=== PATIENT | female | born 1940 | race Caucasian/White ===

== ENCOUNTER 2019-07-22 18:52 | Inpatient (IN) | payer MEDICARE, MEDICAID ==
[~2019-07-22] VITALS: Ht 167.6 cm; Wt 72.8 kg
[~2019-07-22 18:52] MED LIST: ATIVAN0.5 MG PO; BUMEX 1 MG TAB1 MG PO; BUSPAR5 MG PO; CYMBALTA60 MG PO; KENALOG 0.025%15 G2 TOPICAL; KLONOPIN0.5 MG PO; LANTUS INSULIN10 ML SC; LIPITOR10 MG PO; LISINOPRIL5 MG PO; MELATONIN 3 MG1 TAB PO; ORAP1 MG PO; POTASSIUM CHLO10 ME1 PO; SENNA PLUS TA1 UDTAB PO; ZYLOPRIM100 MG PO
--- NOTE | 2019-07-22 19:21 | NUR ---
PT ARRIVED TO UNIT VIA EMS AT 1850. ATTEMPTED TO CONTACT BROTHER ELBA FOR VERBAL CONSENT. LEFT VOICEMAIL.
--- NOTE | 2019-07-22 19:31 | NUR ---
SPOKE WITH ELBA HARRELL, PTS BROTHER ON PHONE. CONFIRMED CODE STATUS DNR. CODE WORD AHMET. VERBALIZED CONSENT TO TREAT. PT CAME FROM THE [facility]. PT IS CALM AND RESTING IN DAYROOM.
[2019-07-22] MEDS ORDERED: CELEXA10 MG PO (19:50)
[2019-07-22] MEDS ORDERED: BUSPAR10 MG PO (19:52)
[2019-07-22] MEDS ORDERED: MELATONIN 3 MG1 TAB PO (19:53)
[2019-07-22] MEDS ORDERED: COLACE100 MG PO (19:53)
[2019-07-22] MEDS ORDERED: ZYLOPRIM100 MG PO (19:54)
[2019-07-22] MEDS ORDERED: OS-CAL500 MG PO (19:55)
[2019-07-22] MEDS ORDERED: BUMETANIDE0.5 MG PO (19:55)
[2019-07-22] MEDS ORDERED: HEALTHYLAX17 GM PO (19:56)
[2019-07-22] MEDS ORDERED: LIPITOR10 MG PO (19:57)
[2019-07-22] MEDS ORDERED: LISINOPRIL5 MG PO (19:58)
[2019-07-22 20:00] VITALS: BP 100/65
[2019-07-22] MEDS ORDERED: SIMETHICON40 MG/0.6 PO (20:01)
[2019-07-22] MEDS ORDERED: NOVOLOG100 UNIT/1 SC (20:03)
[2019-07-22 22:36] VITALS: BP 100/62
[2019-07-23 07:00] VITALS: BP 108/57
[2019-07-23 07:44] LABS: CHOL - HDL RATIO 2.6 ratio (2.3-4.1); LDL-HDL RATIO 1.1 ratio (1.5-3.5)
[2019-07-23 20:00] VITALS: BP 105/66
--- NOTE | 2019-07-23 23:36 | NUR ---
B.) PT IS ALERT AND ORIENTED TO SELF ONLY. SHE IS PLEASANT WITH STAFF AND PEERS. SHE USES A WHEELCHAIR TO AMBULATE. SHE IS INCONTINENT AND UNABLE TO MAKE NEEDS KNOWN. SHE IS QUIET AND KEEPS TO HERSELF. I.) REDIRECT AND REORIENT OFTEN. PROVIDED PM MEDICATONS. R.) PT REMAINS CONFUSED DESPITE ATTEMPTS TO REDIRECT AND REORIENT. COMPLIANT WITH ALL MEDICATIONS. P.) CONTINUE PLAN OF CARE
--- NOTE | 2019-07-24 14:44 | NUR ---
PT IS ALERT TO PERSON ONLY. CALM AND COOPERATIVE WITH ASSESSMENT. PT DID REFUSED V/S X 3 THIS AM. PT TAKES MEDS CRUSHED IN APPLESAUCE. MED COMPLAINT. REDIRECT AND REORIENT NEEDED. FALL PRECAUTIONS IN PLACE. WILL CPOC.
--- NOTE | 2019-07-24 15:51 | HP ---
PATIENT: KENYA DELGADO MEDICAL RECORD: [id number] ACCOUNT: [id number] LOCATION:ABDIFATA[facility] Turner9 : 38 ADMISSION DATE: 07/22/19 PCP: ESTELLE FARRELL MD HISTORY AND PHYSICAL EXAMINATION IDENTIFYING DATA: The patient is 79 years old and she is known to me from previous clinical contact. CHIEF COMPLAINT: Aggression. HISTORY OF PRESENT ILLNESS: The patient lives in a local alf. She has a known chronically mentally ill person. She has been quite aggressive there. She also has a history of dementia. She has no recollection about the events that precipitated this admission. PAST MEDICAL HISTORY: Significant for hypertension. PAST PSYCHIATRIC HISTORY: Significant for a longstanding chronic mental illness for which the patient has received extensive inpatient and outpatient treatment throughout her adult life. FAMILY HISTORY: Significant for coronary artery disease, hypertension, and cancer. ALLERGIES: DEPAKOTE, BENADRYL, AND PENICILLIN. CURRENT MEDICATIONS: Include allopurinol, MiraLax, BuSpar, melatonin, lisinopril, Celexa, insulin, and Lipitor. SOCIAL HISTORY: The patient lives in a local alf. She is and her spouse is . She never functioned well socially and occupationally and has been chronically ill, much all of her adult life. MENTAL STATUS EXAMINATION: The patient is awake, alert, and oriented to person only. Her mood is flat. Her affect is constricted. Thought processes are circumstantial. Memory, concentration, and abstraction abilities are severely impaired. She denies any active intent to harm herself or others as well as any overt psychotic symptoms. ASSETS: Supportive family members. LIABILITIES: Limited insight. DIAGNOSTIC IMPRESSION: AXIS I: Major neurocognitive disorder of the Alzheimer's type with behavioral disturbances. Schizoaffective disorder, bipolar type. AXIS II: Deferred. AXIS III: Diabetes, hypertension, and hyperlipidemia. AXIS IV: Moderate stressors. AXIS V: Global assessment of functioning is 30. PLAN: At this time, the patient is admitted to the hospital secondary to aggressive behavior at the alf. She will be treated with both mood stabilizing and memory enhancing medications. Her long-term prognosis is guarded. HISTORY AND PHYSICAL [id number] KENYA DELGADO TRANSINT:[id number] Voice Confirmation ID: [id number] DOCUMENT ID: [id number] MELONY PHAM MD at 1551 CC: [id number] DICTATION DATE: 1938 PRODUCTION ASSEMBLY OPERATOR: 07/23/19 1224 ADM IN [place] [id number] [place] [id number]
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
[2019-07-25 10:37] VITALS: BP 116/65
--- NOTE | 2019-07-25 12:36 | PN ---
PATIENT:KENYA DELGADO MEDICAL RECORD: [id number] LOCATION:[facility] Turner ADMISSION DATE: 07/22/19 PROGRESS NOTE DATE OF SERVICE: 07/24/2019 SUBJECTIVE: The patient's case was discussed with staff. She has no new complaint. OBJECTIVE: The patient has a depressed mood, but no thoughts of harming herself or others. ASSESSMENT: Dementia. PLAN: At this time, the patient is going to be started on Wellbutrin to assist with her depressive symptoms. Her long-term prognosis is guarded. TRANSINT:[id number] Voice Confirmation ID: [id number] DOCUMENT ID: [id number] MELONY PHAM MD at 1236 CC: [id number] DICTATION DATE: 07/24/191706 SOCIAL SERVICE ASSISTANT: 07/24/191914 ADM IN [facility] [address] [place] [address]
--- NOTE | 2019-07-25 15:16 | NUR ---
PT IS SITTING IN W/C IN DAYROOM WITH PEERS. CALM AND COOPERATIVE WITH ASSESSMENT. MED COMPLIANT. NO BEHAVIORS NOTED. REDIRECT AND REORIENT NEEDED. FALL PRECAUTIONS IN PLACE. WILL CPOC.
[2019-07-25 15:28] VITALS: Ht 167.6 cm; Wt 72.8 kg
[2019-07-25 22:45] VITALS: BP 118/49
--- NOTE | 2019-07-26 02:17 | NUR ---
B) Patient is alert and oriented to person, calm and cooperative I) Administered scheduled medications as ordered, monitored for safety R) Mediation compliant, P0 Continue plan of care.
[2019-07-26 09:09] VITALS: BP 112/67
--- NOTE | 2019-07-26 12:28 | NUR ---
PT IS AWAKE, ALERT, AND COOPERATIVE. CALM AND COOPERATIVE WITH ASSESSMENT. MED COMPLIANT. REDIRECT AND REORIENT NEEDED. FALL PRECAUTIONS IN PLACE. NO BEHAVIORS NOTED AT THIS TIME. WILL CPOC.
--- NOTE | 2019-07-26 15:30 | PN ---
PATIENT:KENYA DELGADO MEDICAL RECORD: [id number] LOCATION:ABDIFATA[facility] Turner ADMISSION DATE: 07/22/19 PROGRESS NOTE DATE OF SERVICE: 07/25/2019 SUBJECTIVE: The patient's case was discussed with staff. She has no new complaint. OBJECTIVE: The patient is in good behavioral control with limited insight about her condition. She tolerates her medicines well. ASSESSMENT: Dementia. PLAN: Brief supportive and educational interventions were made. Long-term prognosis is guarded. TRANSINT:[id number] Voice Confirmation ID: [id number] DOCUMENT ID: [id number] MELONY PHAM MD at 1530 CC: [id number] DICTATION DATE: 07/25/19 1313 TECHNICAL CUSTOMER SUPPORT SPECIALIST: 07/25/19 1325 ADM IN [address] [address]
[2019-07-26 19:42] VITALS: BP 120/66
--- NOTE | 2019-07-26 23:14 | NUR ---
B.) PT IS ALERT AND ORIENTED TO SELF ONLY. SHE IS RECIEVED IN DAYROOM IN A WHEELCHAIR. SHE IS PLEASANT WITH STAFF AND PEERS. I.) PROVIDED PM MEDICATIONS. R.) COMPLIANT WITH ALL MEDICATIONS. P.) CONTINUE PLAN OF CARE
[2019-07-27 08:32] VITALS: BP 107/70
--- NOTE | 2019-07-27 10:00 | NUR ---
RECEIVED PATIENT IN DINING ROOM FOR B'FAST. ALERT, CALM, CONFUSED, COOPERATIVE, PLEASANT. GARBLED SPEECH. MEDS ADMIN PER ORDERS WITH COMPLETE M MED COMPLIANCE NOTED. CONT POC DIRECTED.
--- NOTE | 2019-07-27 12:38 | NUR ---
NUTRITION F/U PT TOLERATING REG DIET. 65% INTAKE RECENT MEALS. STABLE WT AT THIS TIME. WILL CONTINUE TO MONITOR. RD FOLLOWING
--- NOTE | 2019-07-27 13:34 | PN ---
PATIENT:KENYA DELGADO MEDICAL RECORD: [id number] LOCATION:ABDIFATA[facility] Turner ADMISSION DATE: 07/22/19 PROGRESS NOTE DATE OF SERVICE: 07/26/2019 SUBJECTIVE: The patient's case was discussed with staff. She has no new complaint. OBJECTIVE: The patient appears to be significantly and seriously distress, but when asked about this denies it. She has pretty limited insight about her situation. I think the Wellbutrin may be somewhat activating to her and I am going to discontinue it and start her on Zoloft. ASSESSMENT: Dementia. PLAN: Current medicines have been reviewed. I am going to make the changes I just described. TRANSINT:[id number] Voice Confirmation ID: [id number] DOCUMENT ID: [id number] MELONY PHAM MD at 1334 CC: [id number] DICTATION DATE: 07/26/19 170 BUSINESS TRAVEL CONSULTANT: 07/27/19 0026 ADM IN [facility] [address] [place] [address]
[2019-07-27 20:20] VITALS: BP 111/50
--- NOTE | 2019-07-28 03:41 | NUR ---
B.) PT IS ALERT AND ORIENTED TO SELF ONLY. SHE IS PLEASANT WITH STAFF AND USES A WHEELCHAIR TO AMBULATE. SHE IS ABLE TO MAKE HER NEEDS KNOWN MOST OF THE TIME. I.) PROVIDED PM MEDICATIONS. R.) COMPLIANT WITH ALL MEDICATIONS. P.) CONTINUE PLAN OF CARE
[2019-07-28 09:36] VITALS: BP 103/58
[2019-07-28 12:45] LABS: BASOPHILS 0.2 % (0-2); EOSINOPHILS 2.4 % (0-7); HEMATOCRIT 37.1 % (36.0-48.0); HEMOGLOBIN 12.3 g/dL (12-16); IMMATURE GRANULOCYTES 0.2 % (0-5); LYMPHOCYTES 34.3 % (15-50); MCH 29.6 pg (26.0-34.0); MCHC 33.2 g/dL (31.0-37.0); MCV 89.4 fL (80.0-100.0); MEAN PLATELET VOLUME 10.1 fL (7.4-10.4); NEUTROPHILS 58.9 % (40-80); PLATELET COUNT 213 10x3/uL (130-400); RBC 4.15 10x6/uL (4.00-5.40); RDW 13.6 % (11.5-14.5); WBC 8.5 10x3/uL (4.8-10.8)
[2019-07-28 13:12] LABS: ALBUMIN 3.7 g/dL (3.4-5.0); ANION GAP 10.9 mmol/L (8-16); BILIRUBIN - TOTAL 0.32 mg/dL (0.2-1.3); CALCIUM 9.2 mg/dL (8.5-10.1); CARBON DIOXIDE 27.8 mmol/L (21.0-32.0); CREATININE - SERUM 1.2 mg/dL (0.6-1.3); POTASSIUM - SERUM 3.7 mmol/L (3.5-5.1); PROTEIN - SERUM 7.1 g/dL (6.4-8.2); THYROID STIMULATING HORMONE 1.27 uIU/mL (0.36-3.74)
--- NOTE | 2019-07-28 15:48 | NUR ---
B) The patient is awake and alert, she has not shown any aggression today. She has been calm and pleasant. I) Provide prescribed meds. R) The patient is compliant with meds. P) Continue POC.
--- NOTE | 2019-07-28 21:05 | NUR ---
PATIENT IS CONFUSED, NO AGRESSION NOTED, NO ANXIETY NOTED, SMILES APPROPRIATLEY, COMPLIANT WITH MEDS. WILL FOLLOW POC
[2019-07-28 21:26] VITALS: BP 112/66
--- NOTE | 2019-07-29 08:07 | NUR ---
B) The patient is awake and alert, she is pleasant, she has not shown any aggression this am, she smiles. She has poor insight into her situation. I) Provide prescribed meds. R) The patient self propels in her w/c and she is compliant with meds. P) Continue POC.
[2019-07-29 19:05] VITALS: BP 115/61
[2019-07-29 20:36] VITALS: BP 108/63
--- NOTE | 2019-07-29 22:21 | NUR ---
PATIENT IS CONFUSED, FLAT AFFECT AND TIMES, WILL SMILE, COMPLIANT WITH MEDS. WILL FOLLOW POC
[2019-07-30 08:00] VITALS: BP 116/72
--- NOTE | 2019-07-30 16:42 | NUR ---
PT IS AWAKE AND ALERT TO PERSON ONLY. CALM AND COOPERATIVE WITH ASSESSMENT. MED COMPLIANT. REDIRECT AND REORIENT NEEDED. FALL PRECAUTIONS IN PLACE. WILL CPOC.
--- NOTE | 2019-07-30 20:16 | NUR ---
RECIEVED IN DAYROOM. SITTING IN A CHAIR WITH PEERS AT HER SIDE. CALM AND COOPERATIVE WITH CARE AND ASSESSMENT. NO SIGNS OF AGGRESSION AT THIS TIME. REDIRECT AND REORIENT NEEDED. CONTINUES TO SIT QUIETLY IN DAYROOM. CONTINUE PLAN OF CARE
[2019-07-30 22:48] VITALS: BP 103/68
[2019-07-31 08:00] VITALS: BP 101/62
--- NOTE | 2019-07-31 15:03 | NUR ---
PT IS AWAKE AND ALERT SITTING IN W/C WATCHING TV WITH PEERS. CALM AND COOPERATIVE WITH ASSESSMENT. MED COMPLIANT. REDIRECT AND REORIENT NEEDED. NO BEHAVIORS NOTED. FALL PRECAUTIONS IN PLACE. WILL CPOC.
[2019-07-31 20:23] VITALS: BP 104/60
--- NOTE | 2019-07-31 22:04 | NUR ---
RECEIVED IN DAYROOM. SITTING IN CHAIR WITH PEERS AT HER SIDE. NO SIGNS OF AGGRESSION. REDIERCT AND REORIENT NEEDED. CONTINUES TO SIT QUIETLY IN CHAIR. CONTINUE PLAN OF CARE
[2019-08-01 08:00] VITALS: BP 109/68
--- NOTE | 2019-08-01 11:00 | NUR ---
PATIENT AWAKE AND ALERT TO NAME ONLY. CALM AND COOPERATIVE WITH CARE AND ASSESSMENT. MEDICATION COMPLIANT. NO AGGRESSION NOTED. FALL PRECAUTIONS IN PLACE. WILL CONTINUE PLAN OF CARE.
[2019-08-01] MEDS ORDERED: LIPITOR10 MG PO (15:13)
[2019-08-01] MEDS ORDERED: BROVANA15 MCG/2 M INH (15:13)
[2019-08-01] MEDS ORDERED: BUSPAR10 MG PO (15:14)
[2019-08-01] MEDS ORDERED: OS-CAL500 MG PO (15:14)
[2019-08-01] MEDS ORDERED: COLACE100 MG PO (15:14)
[2019-08-01] MEDS ORDERED: VITAMIN B-12500 MCG PO (15:15)
[2019-08-01] MEDS ORDERED: LINZESS145 MCG PO (15:15)
[2019-08-01] MEDS ORDERED: VITAMIN D5000 UNIT PO (15:15)
[2019-08-01] MEDS ORDERED: MIRALAX17 GM PO (15:15)
[2019-08-01] MEDS ORDERED: GENASYME40 MG/0.6 PO (15:15)
[2019-08-01] MEDS ORDERED: MELATONIN 3 MG1 TAB PO (15:16)
[2019-08-01] MEDS ORDERED: ZYLOPRIM100 MG PO (15:16)
[2019-08-01 20:10] VITALS: BP 116/65
--- NOTE | 2019-08-01 20:47 | NUR ---
RECEIVED IN DAYROOM. SITTING IN A CHAIR WITH PEERS AT HER SIDE. CALM AND COOPERATIVE WITH CARE AND ASSESSMENT. NO SIGNS OF AGGRESSION. REDIRECT AND REORIENT NEEDED. CONTINUES TO SIT CALMLY. CONTINUE PLAN OF CARE
[2019-08-02] MEDS ORDERED: Zoloft PO (08:58)
[2019-08-02] MEDS ORDERED: NAMENDA5 MG PO (08:58)
[2019-08-02 09:11] VITALS: BP 124/67
--- NOTE | 2019-08-02 11:00 | NUR ---
DISCHARGED TO THE [facility] VIA [facility]. BELONGINGS AND DISCHARGE INSTRUCTIONS GIVEN TO TERMINAL GAUGER SUPERVISOR.
--- NOTE | 2019-08-02 11:30 | NUR ---
PATIENT AWAKE AND ALERT TO PERSON ONLY. MEDICATION COMPLIANT. CALM AND COOPERATIVE WITH CARE AND ASSESSMENT. REDIRECT AND REORIENT NEEDED. SELF-PROPELS IN WHEELCHAIR. FALL PRECAUTIONS IN PLACE. WILL CONTINUE PLAN OF CARE.
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
--- NOTE | 2019-08-09 15:47 | PN ---
PATIENT:KENYA DELGADO MEDICAL RECORD: [id number] LOCATION:ABDIFATA[facility] Turner ADMISSION DATE: 07/22/19 PROGRESS NOTE DATE OF SERVICE: 07/27/2019 SUBJECTIVE: The patient's case was discussed with staff. She has no new complaint. OBJECTIVE: The patient is in good behavioral control and has not been aggressive today. She is, however, severely confused and impaired cognitively with almost no insight about her situation. ASSESSMENT: Dementia. PLAN: The patient will be continued on current medications. I am going to start her on Namenda for its memory enhancing properties. She will be monitored clinically for side effects associated with this medication. Her long-term prognosis is guarded. TRANSINT:[id number] Voice Confirmation ID: [id number] DOCUMENT ID: [id number] MELONY PHAM MD at 1547 CC: [id number] DICTATION DATE: 07/27/19 1503 DIESEL ENGINE MECHANIC: 07/27/192033 DIS IN 08/02/19 [facility] [address] [place] [address]
--- NOTE | 2019-08-10 14:53 | DS ---
PATIENT:KENYA DELGADO :36 MEDICAL RECORD: [id number] DISCHARGE SUMMARY ADMISSION DATE: 07/22/19 DISCHARGE DATE: 08/02/19 IDENTIFYING DATA: The patient is 79 years old and she was admitted to the hospital on a voluntary basis because of aggression. The patient lives in a local [facility] and is known to be demented and also has some history of mental illness. She was aggressive with the staff therapy there and has no recollection of what she did. HOSPITAL COURSE: The patient was admitted to the hospital and fully evaluated from both a medical, psychological, and social standpoint. She was treated with both mood stabilizing, memory enhancing and antipsychotic medication and showed significant improvement. She was subsequently transitioned back to the [facility]. DISCHARGE DIAGNOSES: Major neurocognitive disorder of the Alzheimer's type with behavioral disturbances. Schizoaffective disorder, bipolar type. Diabetes. Hypertension. Hyperlipidemia. PLAN: At the time of discharge, the patient was not acutely or directly dangerous to herself or others. She was in good behavioral control and followup is to be with her primary care [facility] physician. TRANSINT:[id number] Voice Confirmation ID: [id number] DOCUMENT ID: [id number] MELONY PHAM MD at 1453 CC: [id number] DICTATION DATE: 08/09/191713 DELIVERY MOTORCYCLE DRIVER: 08/10/19 0723 DIS IN 08/02/19 [facility] [address] [place] [address]
== END 2019-08-02 11:00 | DRG 57 ==
LOC: D.PSYCH 18:52
PROVIDERS: Family Medicine; ADMIT Psychiatry & Neurology Psychiatry; ATTEND Psychiatry & Neurology Psychiatry
DX: G30.9 Alzheimer's disease, unspecified (principal); F02.81 Dementia in other diseases classified elsewhere, unspecified severity, with behavioral disturbance; E53.8 Deficiency of other specified B group vitamins; F25.0 Schizoaffective disorder, bipolar type; E11.9 Type 2 diabetes mellitus without complications; I10 Essential (primary) hypertension; E78.5 Hyperlipidemia, unspecified; K59.00 Constipation, unspecified; G47.00 Insomnia, unspecified; E55.9 Vitamin D deficiency, unspecified; M10.9 Gout, unspecified; J44.9 Chronic obstructive pulmonary disease, unspecified; F17.200 Nicotine dependence, unspecified, uncomplicated; R26.9 Unspecified abnormalities of gait and mobility

== ENCOUNTER 2019-10-13 12:24 | Inpatient (IN) | payer MEDICARE ==
[~2019-10-13 12:24] MED LIST changes: +BROVANA15 MCG/2 M INH; +BUMETANIDE0.5 MG PO; +BUSPAR10 MG PO; +CELEXA10 MG PO; +COLACE100 MG PO; +GENASYME40 MG/0.6 PO; +HEALTHYLAX17 GM PO; +LINZESS145 MCG PO; +MIRALAX17 GM PO; +NAMENDA5 MG PO; +NOVOLOG100 UNIT/1 SC; +OS-CAL500 MG PO; +SIMETHICON40 MG/0.6 PO; +VITAMIN B-12500 MCG PO; +VITAMIN D5000 UNIT PO; +Zoloft PO
[2019-10-13] MEDS ORDERED: TRAZODONE HCL150 MG PO ×2 (15:28→15:36)
[2019-10-13] MEDS ORDERED: ZOLOFT50 MG PO (15:31)
[2019-10-13] MEDS ORDERED: BUSPAR5 MG PO (15:32)
[2019-10-13] MEDS ORDERED: GENASYME40 MG/0.6 PO (15:39)
[2019-10-13] MEDS ORDERED: ATIVAN0.5 MG PO (15:40)
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
[2019-10-13 16:06] VITALS: BP 164/85; BMI 25.5
--- NOTE | 2019-10-13 17:45 | NUR ---
Spoke to the patient's brother Jordin Gerber and got a code word it is 62.
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
--- NOTE | 2019-10-14 03:22 | NUR ---
B) Patient is alert and oriented to person, calm and cooperative this shift possiblly due to being sedated late in the previous shift I) Administered scheduled medications as orderd, monitored for safety R) Medication compliant, sleeping quietly in her bed now, P) Continue plan of care.
[2019-10-14 06:38] LABS: BASOPHILS 0.4 % (0-2); EOSINOPHILS 3.8 % (0-7); HEMATOCRIT 38.2 % (36.0-48.0); IMMATURE GRANULOCYTES 0.2 % (0-5); LYMPHOCYTES 26.9 % (15-50); MCH 28.9 pg (26.0-34.0); MCHC 31.4 g/dL (31.0-37.0); MONOCYTES 5.9 % (2-11); NEUTROPHILS 62.8 % (40-80); PLATELET COUNT 209 10x3/uL (130-400); RBC 4.15 10x6/uL (4.00-5.40); RDW 13.4 % (11.5-14.5); WBC 11.5 10x3/uL (4.8-10.8)
[2019-10-14 07:08] LABS: ALBUMIN 3.3 g/dL (3.4-5.0); ANION GAP 13.8 mmol/L (8-16); BILIRUBIN - TOTAL 0.24 mg/dL (0.2-1.3); CALCIUM 8.9 mg/dL (8.5-10.1); CARBON DIOXIDE 26.2 mmol/L (21.0-32.0); CHOL - HDL RATIO 2.5 ratio (2.3-4.1); LDL-HDL RATIO 1.1 ratio (1.5-3.5); PROTEIN - SERUM 6.6 g/dL (6.4-8.2); THYROID STIMULATING HORMONE 1.39 uIU/mL (0.36-3.74)
[2019-10-14 09:06] VITALS: Wt 70.5 kg
[2019-10-14 09:43] VITALS: BP 119/61
--- NOTE | 2019-10-14 09:48 | NUR ---
PATIENT COMBATIVE WITH STAFF, ATIVAN 0.5 MG ADMIN IM PER MED NURSE.
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
--- NOTE | 2019-10-14 15:45 | NUR ---
The patient is sitting at the table with Dr. Booker, She is not fighting her. She is able to self propel herself in the w/c. She is not able to tell Dr. Booker why she is here. She does not know her name. She has poor insight into her situation. Provide prescribed meds. The patient is compliant with meds. Continue POC.
[2019-10-14 20:00] VITALS: BP 105/55
--- NOTE | 2019-10-15 00:06 | NUR ---
B) Patient is alert and oriented to person, calm and cooperative this shift, no aggression noted, I) Administered scheduled medications as ordered, monitored for behaviors, R) Mediation compliant, resting quietly in her bed now, P) Continue plan of care.
[2019-10-15 08:00] VITALS: BP 117/66
[2019-10-15 09:00] VITALS: BP 117/66
--- NOTE | 2019-10-15 15:31 | NUR ---
PATIENT HAS BEEN CALM THIS SHIFT, NO ADVERSE BEHAVIORS NOTED. COMPLIANT WITH MEDS. CONT POC DIRECTED.
--- NOTE | 2019-10-15 20:11 | NUR ---
RECEIVED IN BEDROOM. RESTING IN BED WITH EYES CLOSED. CALM AND COOPERATIVE WITH CARE AND ASSESSMENT. NO SIGNS OF AGGRESSION. REDIRECT AND REORIENT NEEDED. RESTING IN BED WITH EYES CLOSED. CONTINUE PLAN OF CARE
[2019-10-15 20:44] VITALS: BP 126/66
[2019-10-16 09:36] VITALS: BP 105/62
[2019-10-16 14:57] LABS: BASOPHILS 0.3 % (0-2); EOSINOPHILS 3.4 % (0-7); IMMATURE GRANULOCYTES 0.3 % (0-5); LYMPHOCYTES 25.6 % (15-50); MCH 29.2 pg (26.0-34.0); MCHC 31.7 g/dL (31.0-37.0); MCV 92.1 fL (80.0-100.0); MEAN PLATELET VOLUME 9.8 fL (7.4-10.4); MONOCYTES 6.8 % (2-11); NEUTROPHILS 63.6 % (40-80); PLATELET COUNT 229 10x3/uL (130-400); RBC 4.45 10x6/uL (4.00-5.40); RDW 13.4 % (11.5-14.5); WBC 15.1 10x3/uL (4.8-10.8)
--- NOTE | 2019-10-16 15:13 | PSY ---
PATIENT NAME:KENYA DELGADO MEDICAL RECORD: [id number] : 36 LOCATION:[facility] ADMISSION DATE: 10/13/19 ACCOUNT: [id number] PSYCHIATRIC EVALUATION DATE OF EVALUATION: 10/14/19 IDENTIFYING DATA: The patient is 79 years old and she is known to me from previous clinical contact. CHIEF COMPLAINT: Aggression. HISTORY OF PRESENT ILLNESS: The patient has been living in local longterm. She has been aggressive with the staff there. She cannot provide details about what happened, and although she has a history of dementia I believe that she is deliberately withholding information from me. She clearly remembers being here a month ago and now she says she has no recollection for what happened a day ago at the longterm. She denies that she would seek to harm herself or others. She is denying psychotic symptoms. PAST MEDICAL HISTORY: Significant for hypertension. PAST PSYCHIATRIC HISTORY: Significant for longstanding mental illness for which the patient has received extensive inpatient and outpatient treatment throughout her adult life. FAMILY HISTORY: Significant for coronary artery disease, hypertension and cancer. ALLERGIES: PENICILLIN, BENADRYL, AND DEPAKOTE. CURRENT MEDICATIONS: Please see the admissions MAR. SOCIAL HISTORY: The patient lives in a local longterm. She is and her former spouse has subsequently . She has never functioned well socially or occupationally. She has been chronically mentally ill all much of her adult life. MENTAL STATUS EXAMINATION: The patient is awake, alert and oriented to person and place. Her mood is flat. Her affect is constricted. Thought processes are circumstantial. Memory, concentration, and abstraction abilities are impaired. She denies intent to harm herself or others as well as psychotic symptoms. ASSETS: Supportive family members. LIABILITIES: Limited insight. DIAGNOSTIC IMPRESSION: AXIS I: Major neurocognitive disorder of the Alzheimer's type with behavioral disturbances. Schizoaffective disorder, bipolar type. AXIS II: Deferred. AXIS III: Diabetes, hypertension and hyperlipidemia. AXIS IV: Moderate stressors. AXIS V: Global assessment of functioning is 30. PLAN: At this time, the patient is admitted to the hospital secondary to aggressive behavior at the longterm. The aggressive behavior is related to her underlying mental illness and dementia. She will be treated with both antipsychotic and mood stabilizing medications. Once stabilized, she will be returned to the longterm. TRANSINT:[id number] Voice Confirmation ID: [id number] DOCUMENT ID: [id number] MELONY PHAM MD at 1513 CC: [id number] DICTATION DATE: 10/14/19 1303 APPRAISER BOATS AND MARINE: 10/14/19 1350 ADM IN [place] [place] [address]
--- NOTE | 2019-10-16 15:13 | PN ---
PATIENT:KENYA DELGADO MEDICAL RECORD: [id number] LOCATION:[facility] ADMISSION DATE: 10/13/19 PROGRESS NOTE DATE OF SERVICE: 10/15/2019 SUBJECTIVE: The patient's case was discussed with staff. She has no new complaint. OBJECTIVE: The patient is in good behavioral control with poor insight. ASSESSMENT: Schizoaffective disorder. PLAN: Current medicines have been reviewed. They will be maintained. TRANSINT:[id number] Voice Confirmation ID: [id number] DOCUMENT ID: [id number] MELONY PHAM MD at 1513 CC: [id number] DICTATION DATE: 10/15/19 1435 GEOSCIENCES PROFESSOR: 10/15/19 1551 ADM IN [place] [place] [address]
--- NOTE | 2019-10-16 15:24 | NUR ---
PT RESTLESS, SOMETIMES DIFFICULT TO RE-DIRECT, NO AGGRESSION NOTED THIS SHIFT, COMPLIANT WITH MEDS, CONT POC DIRECTED.
[2019-10-16 23:37] VITALS: BP 113/65
--- NOTE | 2019-10-17 00:41 | NUR ---
RECEIVED IN HALLWAY OUTSIDE OF NURSES STATION. WHEELING AROUND IN WHEELCHAIR. CALM AND COOPERATIVE WITH CARE AND ASSESSMENT. NO AGGRESSIVE BEHAVIORS. REDIRECT AND REORIENT NEEDED. RESTING IN BED WITH EYES CLOSED AT THIS TIME. CONTINUE PLAN OF CARE.
[2019-10-17 08:11] LABS: RAPID PLASMA REAGIN Non Reactive (Non Reactive)
[2019-10-17 09:25] VITALS: BP 102/58
--- NOTE | 2019-10-17 13:23 | NUR ---
PATIENT IS CALM AND COOPERATIVE WITH CARE AND ASSESSMENT. SELF-PROPELS IN W/C. COMPLIANT WITH MEDICATIONS. NO AGGRESSION NOTED. MONITOR FOR SAFETY AND CONTINUE POC.
--- NOTE | 2019-10-17 15:04 | PN ---
PATIENT:KENYA DELGADO MEDICAL RECORD: [id number] LOCATION:[facility] ADMISSION DATE: 10/13/19 PROGRESS NOTE DATE OF SERVICE: 10/16/2019 SUBJECTIVE: The patient's case was discussed with staff. She has no new complaint. OBJECTIVE: The patient is in better behavioral control today. She has pretty limited insight about her situation. She has not been aggressive today. ASSESSMENT: 1. Schizoaffective disorder. 2. Dementia. PLAN: Current medicines have been reviewed and will be maintained. Long-term prognosis is guarded. TRANSINT:[id number] Voice Confirmation ID: [id number] DOCUMENT ID: [id number] MELONY PHAM MD at 1504 CC: [id number] DICTATION DATE: 10/16/19 1544 CONTROLS DESIGNER: 10/16/[address] [facility] [address] [place] [address]
--- NOTE | 2019-10-17 15:56 | NUR ---
Nutrition Follow-up: Diet: Diabetic PO intake: ~83% average x last 10 meals recorded Last BM: 10/16/19. WT: 159# (10/15/19); Admit wt: 158# (10/13/19) meds and labs reviewed. Continue current nutrition regimen. RD following.
[2019-10-17 21:01] VITALS: BP 127/94
--- NOTE | 2019-10-17 21:21 | NUR ---
RECEIVED IN HALLWAY. ROLLING AROUND IN HER WHEELCHAIR. CHECKING DOORS TO EXIT. CALM AND COOPERATIVE WITH CARE AND ASSESSMENT. NO SIGNS OF AGGRESSION. CONTINUES TO MOVE ABOUT IN HER WHEELCHAIR. CONTINUE PLAN OF CARE
--- NOTE | 2019-10-17 22:42 | NUR ---
IN AND OUT CATH FOR U/A AND CULTURE. NO SIGNS OF DISTRESS.
[2019-10-17 23:15] LABS: APPEARANCE CLOUDY (CLEAR); BILIRUBIN NEGATIVE (NEGATIVE); COLOR YELLOW (YELLOW); GLUCOSE NEGATIVE (NEGATIVE); KETONE NEGATIVE (NEGATIVE); NITRITE POSITIVE (NEGATIVE); PROTEIN 2+ mg/dL (NEGATIVE); SPECIFIC GRAVITY 1.015 (1.005-1.020); UROBILINOGEN NORMAL (NORMAL)
[2019-10-17 23:16] LABS: BACTERIA MODERATE /hpf (NEGATIVE); EPITHELIAL CELLS 0-5 /hpf (0-5); RED CELLS - URINE 0-5 /hpf (0-5)
[2019-10-18 09:00] VITALS: BP 109/63
--- NOTE | 2019-10-18 12:33 | PN ---
PATIENT:KENYA DELGADO MEDICAL RECORD: [id number] LOCATION:[facility] ADMISSION DATE: 10/13/19 PROGRESS NOTE DATE OF SERVICE: 10/17/2019 SUBJECTIVE: The patient's case was discussed with staff. She has no new complaint. OBJECTIVE: The patient is withdrawn and disorganized. Although she is not displaying overt psychotic symptoms, I think she is inwardly experiencing them. ASSESSMENT: 1. Schizoaffective disorder. 2. Dementia. PLAN: Current medicines have been reviewed. I am going to start her on antipsychotic medication. TRANSINT:[id number] Voice Confirmation ID: [id number] DOCUMENT ID: [id number] MELONY PHAM MD at 1233 CC: [id number] DICTATION DATE: 10/17/19 160 FIREWALL SECURITY ENGINEER: 10/17/19 193 ADM IN [facility] [address] [place] [address]
--- NOTE | 2019-10-18 13:37 | NUR ---
The patient is awake and she has poor insight into her situation. She is in a w/c and self propels. She does not redirect easily. Provide prescribed meds. Redirect to appropriate behavior as needed. The patient is compliant with meds. Continue POC.
--- NOTE | 2019-10-18 15:22 | NUR ---
The patient is getting restless, she is not listening to staff. She took some crayons and she would not put them back on the table. She then was redirected away from the staff and other patients so that she would not hit them and she began swinging at the staff. Provide Ativan 0.5 mg IM in her right deltoid. Monitor her behavior.
[2019-10-18 21:55] VITALS: BP 119/67
--- NOTE | 2019-10-18 21:59 | NUR ---
RECEIVED IN PATIENT ROOM. GETTING READY FOR BED. CALM AND COOPERATIVE WITH CARE AND ASSESSMENT. NO AGGRESSIVE BEHAVIOR. REDIRECT AND REORIENT NEEDED. RESTING IN BED WITH EYES CLOSED AT THIS TIME. CONTINUE PLAN OF CARE.
[2019-10-19 08:00] VITALS: BP 109/66
--- NOTE | 2019-10-19 09:00 | NUR ---
AWAKE,ALERT, CONFUSED, QUIETLY SELF-PROPELS ABOUT UNIT IN HER WHEELCHAIR. SHE TAKES THINGS AND PLACES THESE IN HER WHEELCHAIR. CALM AND COOPERATIVE WITH CARE AND ASSESSMENT. COMPLIANT WITH MEDICATIONS. MONITOR FOR SAFETY AND CONTINUE PLAN OF CARE.
--- NOTE | 2019-10-19 14:33 | NUR ---
Nutrition Follow-up: Diet: Diabetic PO intake: ~78% average x last 9 meals Last BM: 10/17/19. WT: 159# (10/15/19); Admit wt: 158# (10/13/19) Meds reviewed. No new labs. Continue current nutrition regimen. RD following.
--- NOTE | 2019-10-19 15:32 | PN ---
PATIENT:KENYA DELGADO MEDICAL RECORD: [id number] LOCATION:[facility] ADMISSION DATE: 10/13/19 PROGRESS NOTE DATE OF SERVICE: 10/18/2019 SUBJECTIVE: The patient's case was discussed with staff. She has no new complaint. OBJECTIVE: The patient is in good behavioral control. She has poor insight about her condition. She has been somewhat agitated, but not in a way that is significantly disruptive. ASSESSMENT: 1. Schizoaffective disorder. 2. Dementia. PLAN: The patient will be maintained on current medicines, which have been reviewed. Her long-term prognosis is guarded. TRANSINT:[id number] Voice Confirmation ID: [id number] DOCUMENT ID: [id number] MELONY PHAM MD at 1532 CC: [id number] DICTATION DATE: 10/18/19 1247 ART DISPLAY MAKER: 10/18/19 1333 ADM IN [place] [place] [address]
[2019-10-19 21:12] VITALS: BP 111/63
--- NOTE | 2019-10-19 21:29 | NUR ---
B.) PT IS ALERT AND ORIENTED TO SELF ONLY. SHE HAS POOR INSIGHT INTO HER SITUATION. SHE IS QUIET AND WITHDRAWN BUT PLEASANT WITH STAFF. SHE USES HER WHEEL CHAIR TO AMBULATE AND TRANSFERS WITH ASSISTANCE. I.) PROVIDED PM MEDICATIONS. REDIRECT NEEDED. R.) COMPLIANT WITH ALL MEDICATIONS. P.) WILL CONTINUE TO MONITOR.
[2019-10-20 08:30] VITALS: BP 116/77
--- NOTE | 2019-10-20 08:50 | NUR ---
PATIENT SITTING IN CHAIR WITH EYES OPEN. RESP EVEN AND NONLABORED. NO ACUTE DISTRESS NOTED. PT IS ALERT AND ORIENTED TO SELF ONLY. PT IS QUIET, FRIENDLY WITH STAFF AND PEERS. PT CAN MAKE SOME NEEDS KNOWN. PT IS COMPLIANT WITH STAFF, MEDS AND ASSESSMENTS. PT USES WHEELCHAIR TO AMBULATE WITH CHAIR ALARM IN PLACE AND ACTIVE. WILL CONT PLAN OF CARE.
--- NOTE | 2019-10-20 13:49 | PN ---
PATIENT:KENYA DELGADO MEDICAL RECORD: [id number] LOCATION:[facility] ADMISSION DATE: 10/13/19 PROGRESS NOTE DATE OF SERVICE: 10/19/2019 SUBJECTIVE: The patient's case was discussed with staff. She has no new complaint. OBJECTIVE: The patient is disorganized and certainly is clearly experiencing psychotic symptoms. The symptoms appeared to be less intense than they were a couple of days ago, but they are still present. ASSESSMENT: No change in diagnoses. PLAN: The patient will be maintained on current medicines with the exception of the BuSpar, which I will discontinue secondary to a lack of clinical indication. TRANSINT:[id number] Voice Confirmation ID: [id number] DOCUMENT ID: [id number] MELONY PHAM MD at 1349 CC: [id number] DICTATION DATE: 10/19/19 1636 SEISMIC PROSPECTING OBSERVER: 10/20/19 0023 ADM IN [facility] [address] [place] [address]
[2019-10-20 16:13] VITALS: BP 116/77
--- NOTE | 2019-10-20 20:31 | NUR ---
PATIENT IS CONFUSED, NO INSIGHT TO SITUATION, NO AGGRESSION SHOWN. PATIENT BEING TREATED FOR A UTI, COMPLIANT WITH MEDS, NO ADVERSE REACTION NOTED. WILL FOLLOW POC
[2019-10-21 02:22] VITALS: BP 120/64
--- NOTE | 2019-10-21 09:10 | NUR ---
PATIENT SITTING IN CHAIR. RESP EVEN AND NONLABORED. NO ACUTE DISRESS NOTED. PT IS NONCOMPLIANT WITH MEDS THIS SHIFT. PT DID TAKE MEDS AND SPIT THEM OUT. PT IS ALERT AND ORIENTED TO SELF ONLY WITH POOR INSIGHT TO SITUATION. PT CAN BECOME COMBATIVE WT STAFF DURING REDIRECTION. PT NEEDS CONSTANT REDIRECT AND REORIETION. CHAIR ALARM IN PLACE AND ACTIVE. WILL CONT PLAN OF CARE.
--- NOTE | 2019-10-21 11:50 | PN ---
PATIENT:KENYA DELGADO MEDICAL RECORD: [id number] LOCATION:[facility] ADMISSION DATE: 10/13/19 PROGRESS NOTE DATE OF SERVICE: 10/20/2019 SUBJECTIVE: The patient's case was discussed with staff. She has no new complaint. OBJECTIVE: The patient has pretty limited insight about her condition. She is withdrawn and clearly is attending to psychotic symptoms that are internal but she is not being disruptive in any way and she is certainly not having much in the way of mood lability at this point. ASSESSMENT: 1. Schizoaffective disorder. 2. Dementia. PLAN: The patient will be maintained on current medications with the exception of the Zyprexa, which I am going to increase to 5 mg at bedtime. Zyprexa is being used to assist with her thought disorganization. She will be monitored for clinical changes associated with its use. TRANSINT:[id number] Voice Confirmation ID: [id number] DOCUMENT ID: [id number] MELONY PHAM MD at 1150 CC: [id number] DICTATION DATE: 10/20/19 1610 MANAGER BILLING: 10/20/19 2148 ADM IN [facility] [address] [place] [address]
--- NOTE | 2019-10-21 21:05 | NUR ---
PATIENT IS CONFUSED, DOES NOT MAKE ANY SENSE WHEN SHE TALKS, DOES NOT MAKE NEEDS KNOWN, COMPLIANT WITH MEDS. WILL FOLLOW POC
[2019-10-22 01:44] VITALS: BP 122/71
--- NOTE | 2019-10-22 09:50 | NUR ---
PATIENT IS WHEELING AROUND IN W/C MUMBLING TO HERSELF. UNABLE TO UNDERSTAND WHAT PT IS SAYING. PT IS ALERT CONFUSED AND ORIENTED TO SELF ONLY. PT IS HARD TO REDIRECT AND REORIENT. ATTEMPT TO REORIENT AND REDIRECT NEEDED. PT CAN BE VERY HARD TO REDIRECT. PT IS COMPLIANT WITH MEDS, VITALS AND ASSESSMENTS. CHAIR ALARM IN PLACE AND ACTIVE. WILL CONT PLAN OF CARE. PT CAN BE COMBATIVE WITH CARE.
[2019-10-22 11:27] VITALS: BP 93/61
--- NOTE | 2019-10-22 13:20 | NUR ---
PATIENT WAS EATING LUNCH AND BECAME UPSET WHEN STAFF ATTEMPTED TO REMOVE BOOKS FROM HER HANDS. PATIENT THREW HER MILK ON THE FLOOR AND TRAY. PT HIT MHT SEVERAL TIMES. STAFF ATTEMPTED TO REDIRECT. UNABLE TO REDIRECT AT THIS TIME. ATIVAN 0.5 MG AND HALDOL [address] PHAM ORDER FOR COMBATIVE BEHAVIORS. WILL CONT PLAN OF CARE.
--- NOTE | 2019-10-22 13:20 | PN ---
PATIENT:KENYA DELGADO MEDICAL RECORD: [id number] LOCATION:[facility] ADMISSION DATE: 10/13/19 PROGRESS NOTE DATE OF SERVICE: 10/21/2019 SUBJECTIVE: The patient's case was discussed with staff. She has no new complaint. OBJECTIVE: The patient spit out her medicines this morning and has been agitated. It has not been sufficient to require p.r.n. medication, but that may be coming later today. ASSESSMENT: Schizoaffective disorder. PLAN: The patient is going to be treated with lithium at a dose of 300 mg twice daily. She will be monitored for clinical changes associated with its use. Her long-term prognosis is guarded. TRANSINT:[id number] Voice Confirmation ID: [id number] DOCUMENT ID: [id number] MELONY PHAM MD at 1320 CC: [id number] DICTATION DATE: 10/21/19 1210 SURGICAL ELASTIC KNITTER HAND FRAME: 10/21/19 1416 ADM IN [place] [place] [address]
--- NOTE | 2019-10-22 15:05 | NUR ---
PRN NOT EFFECTIVE AT THIS TIME. STAFF ATTEMPTED TO OBTAIN PTS WEIGHT. PT BECOME COMBATIVE WITH STAFF AT THIS TIME. WILL CONT TO MONITOR BEHAVIORS.
[2019-10-22 20:00] VITALS: BP 109/64
--- NOTE | 2019-10-22 21:58 | NUR ---
RECEIVED IN HALLWAY OUTSIDE OF NURSES STATION. CALM AND COOPERATIVE WITH CARE AND ASSESSMENT. NO AGGRESSIVE BEHAVIOR. REDIRECT AND REORIENT NEEDED. RESTING IN BED WITH EYES CLOSED AT THIS TIME. CONTINUE PLAN OF CARE.
--- NOTE | 2019-10-23 13:58 | NUR ---
PSTIENT IS AWAKE AND ALERT TO PERSON ONLY AND VERY CONFUSED. CALM AND COOPERATIVE WITH CARE AND ASSESSMENT. COMPLIANT WITH MEDICATIONS. NEEDS FREQUENT REDIRECTING. NO AGGRESSION NOTED. MONITOR FOR SAFETY AND CONTINUE PLAN OF CARE.
--- NOTE | 2019-10-23 15:13 | PN ---
PATIENT:KENYA DELGADO MEDICAL RECORD: [id number] LOCATION:[facility] ADMISSION DATE: 10/13/19 PROGRESS NOTE DATE OF SERVICE: 10/22/2019 SUBJECTIVE: The patient's case was discussed with staff. She has no new complaint. OBJECTIVE: The patient is tolerating her medicines well. I have started her on lithium, but will not check a level for a couple of days. ASSESSMENT: 1. Schizoaffective disorder. 2. Dementia. PLAN: Brief supportive and educational interventions were made. Long-term prognosis is guarded. TRANSINT:[id number] Voice Confirmation ID: [id number] DOCUMENT ID: [id number] MELONY PHAM MD at 1513 CC: [id number] DICTATION DATE: 10/22/19 1348 TAX DIRECTOR: 10/22/19 2313 ADM IN [facility] [address] [place] [id number]
--- NOTE | 2019-10-23 16:02 | NUR ---
Nutrition Follow-up: Diet: Diabetic PO intake: ~74% average x last 9 meals Last BM: 10/21/19. WT: 159# (10/15/19); Admit wt: 158# (10/13/19) Meds reviewed, no new labs. Continue current nutrition regimen. RD following.
[2019-10-23 20:00] VITALS: BP 109/61
--- NOTE | 2019-10-23 22:24 | NUR ---
RECEIVED IN PATIENT ROOM. RESTING IN BED WITH EYES OPEN. SHOWER GIVEN. CALM AND COOPERATIVE WITH CARE AND ASSESSMENT. NO AGGRESSIVE BEHAVIOR. REDIRECT AND REORIENT NEEDED. RESTING IN BED WITH EYES CLOSED AT THIS TIME. CONTINUE PLAN OF CARE.
[2019-10-24 08:00] VITALS: BP 95/59
--- NOTE | 2019-10-24 11:23 | NUR ---
PATIENT ALERT, RESTLESS, RAMBLES ABOUT DAYROOM IN W/C, PILFERS AT TIMES, RE-DIRECTS EASILY, CONT CONFUSED, NO AGGRESSION NOTED. COMPLIANT WITH MEDS. CONT POC DIRECTED.
--- NOTE | 2019-10-24 13:51 | PN ---
PATIENT:KENYA DELGADO MEDICAL RECORD: [id number] LOCATION:[facility] ADMISSION DATE: 10/13/19 PROGRESS NOTE DATE OF SERVICE: 10/23/2019 SUBJECTIVE: The patient's case was discussed with staff. She has no new complaint. OBJECTIVE: The patient is in good behavioral control today, but yesterday she was agitated and required p.r.n. medication. ASSESSMENT: 1. Schizoaffective disorder. 2. Dementia. PLAN: The patient has been started on lithium and a lithium level will be checked soon to identify the level and direct further adjustments. TRANSINT:[id number] Voice Confirmation ID: [id number] DOCUMENT ID: [id number] MELONY PHAM MD at 1351 CC: [id number] DICTATION DATE: 10/23/191646 MULTI SITE LEASING CONSULTANT: 10/24/19 0129 ADM IN [facility] [address] [place] [id number]
[2019-10-24 20:35] VITALS: BP 109/68
--- NOTE | 2019-10-25 00:03 | NUR ---
RECEIVED IN DAYROOM. SITTING IN WHEELCHAIR QUIETLY. CALM AND COOPERATIVE WITH CARE AND ASSESSMENT. NO AGGRESSSIVE BEHAVIOR. REDIRECT AND REORIENT NEEDED. RESTING IN BED WITH EYES CLOSED AT THIS TIME. CONTINUE PLAN OF CARE.
[2019-10-25 09:11] VITALS: BP 101/54
--- NOTE | 2019-10-25 10:12 | PN ---
PATIENT:KENYA DELGADO MEDICAL RECORD: [id number] LOCATION:[facility] ADMISSION DATE: 10/13/19 PROGRESS NOTE DATE OF SERVICE: 10/24/2019 SUBJECTIVE: The patient's case was discussed with staff. She has no new complaint. OBJECTIVE: The patient is tolerating her medicines well. She has poor insight about her situation. ASSESSMENT: 1. Schizoaffective disorder. 2. Dementia. PLAN: A lithium level will be checked. Prognosis is guarded. Current medicines and therapies will be maintained. TRANSINT:[id number] Voice Confirmation ID: [id number] DOCUMENT ID: [id number] EMLONY PHAM MD at 1012 CC: [id number] DICTATION DATE: 10/24/19 1545 MULTIMEDIA PROJECT MANAGER: 10/24/19 2305 ADM IN [facility] [address] [place] [address]
--- NOTE | 2019-10-25 15:58 | NUR ---
PATIENT ALERT, CONFUSED, CALM, PLEASANT MOOD, NO AGGRESSION NOTED. TAKES MEDS CRUSHED DUE TO CONFUSION. NO ADVERSE BEHAVIORS NOTED. CONT POC DIRECTED.
[2019-10-25 22:50] VITALS: BP 92/56
--- NOTE | 2019-10-25 22:50 | NUR ---
REC'D PATIENT SITTING IN A WHEELCHAIR IN THE DAYROOM. TALKING TO HER REFLECTION IN THE DOOR. ORIENTED TO SELF ONLY. PATIENT REALTES "HERE" AND LAUGHS. WHEN ASKED PATIENT IF KNOWS THE REASON SHE IS HERE PATIENT REPLIES "I LIKE IT" AND LAUGHS. ADMINISTER MEDS AND MONITOR COMPLIANCE. REORIENT NEEDED. MED COMPLIANT. POOR REORIENTATION DUE TO IMPAIRED ABILITY TO PROCESS AND RETAIN INFORMATION. CONTINUE POC AND PROVIDE SAFE ENVIRONMENT.
--- NOTE | 2019-10-26 09:09 | NUR ---
REC'D PT IN WHEELCHAIR PROPELLING SELF UP AND DOWN HALLWAY. PT CAN BE INTRUSIVE. REDIRECT AND REORIENT NEEDED. REDIRECT AND REORIENTION IS DIFFICULT DUE TO LOW UNDERSTANDING DUE TO CONGITIVE ABLILITY. CONFUSED ALERT AND ORIENTED TO SELF ONLY. PT REQUIRES ASSITANCE WITH ADLS. PT IS COMPLIANT WITH MEDS, VITALS AND ASSESSMENT. PREVIOUS SHIFT REPORTED NO BEHAVIORS. NO BEHAVIORS NOTED THUS FAR. CHAIR ALARM IN PLACE AND ACTIVE. WILL CONT PLAN OF CARE.
[2019-10-26 09:26] VITALS: BP 115/60
--- NOTE | 2019-10-26 11:44 | PN ---
PATIENT:KENYA DELGADO MEDICAL RECORD: [id number] LOCATION:[facility] ADMISSION DATE: 10/13/19 PROGRESS NOTE DATE OF SERVICE: 10/25/2019 SUBJECTIVE: The patient's case was discussed with staff. She has no new complaint. OBJECTIVE: The patient is in good behavioral control with limited insight about her situation. ASSESSMENT: 1. Schizoaffective disorder. 2. Dementia. PLAN: The patient's lithium level is near therapeutic at 0.65 mEq. She will be maintained on current medicines. Her long-term prognosis is guarded. TRANSINT:[id number] Voice Confirmation ID: [id number] DOCUMENT ID: [id number] MELONY PHAM MD at 1144 CC: [id number] DICTATION DATE: 10/25/191717 CENTRAL OFFICE WORKER: 10/26/19 0209 ADM IN [address] [place] [id number]
--- NOTE | 2019-10-26 13:48 | NUR ---
Nutrition Follow-up: Diet: Diabetic PO intake: ~67% average x last 9 meals Last BM: 10/25/19. Last WT: 158# (10/15/19)- pt combative for this weeks wt check per nursing flowsheet. Admit wt: 158# (10/13/19) Meds noted: levaquin, linzess, miralax, bumex. No new labs. Continue current nutrition regimen. RD following.
[2019-10-26 20:09] VITALS: BP 110/54
--- NOTE | 2019-10-26 23:50 | NUR ---
REC'D PATIENT SITTING IN THE DAYROOM. SITS TO SELF AND DOES NOT INTERACT WITH PEERS. LIKES TO SIT AND COLOR. CONFUSED AND DISORIENTED. LAUGHS AT INAPPROPRIATE TIMES SUCH WHEN ASSESSING PATIENT IF SHE DOES NOT KNOW THE ANSWER THEN SHE WILL START LAUGHING. ADMINISTER MEDS AND MONITOR COMPLIANCE. REORIENT NEEDED. MED COMPLIANT. POOR REORIENTATION DUE TO IMPAIRED ABILITY TO COMPREHEND INFORMATION AND PATIENT WILL JUST LAUGH. CONTINUE POC AND PROVIDE SAFE ENVIRONMENT.
[2019-10-27 08:24] VITALS: BP 125/50
--- NOTE | 2019-10-27 11:36 | NUR ---
The patient is calm and pleasant, she is quiet, she does try to grab things and just hold onto them. She will sit and color or go around the room self propelling her w/c and hold books in her lap. She has not shown aggression today. Provide prescribed meds. The patient is compliant with meds. Continue POC.
--- NOTE | 2019-10-27 13:40 | NUR ---
PATIENT HAD A SHOWER THIS SHIFT. PT REFUSED TO STAND TO PUT NEW CLOTHES ON. 3X STAFF HAD TO MAX ASSIST PT TO DRESS. PT TOLERATED WELL.
--- NOTE | 2019-10-27 15:05 | PN ---
PATIENT:KENYA DELGADO MEDICAL RECORD: [id number] LOCATION:[facility] ADMISSION DATE: 10/13/19 PROGRESS NOTE DATE OF SERVICE: 10/26/2019 SUBJECTIVE: The patient's case was discussed with staff. She has no new complaint. OBJECTIVE: The patient is disorganized with limited insight about her condition. She tolerates her medicines well. ASSESSMENT: 1. Schizoaffective disorder. 2. Dementia. PLAN: The patient has been started on lithium. It is therapeutic. I believe it needs a little bit more of an opportunity to become fully effective. TRANSINT:[id number] Voice Confirmation ID: [id number] DOCUMENT ID: [id number] MELONY PHAM MD at 1505 CC: [id number] DICTATION DATE: 10/26/191831 SECURITY FIELD SUPERVISOR: 10/26/192018 ADM IN [facility] [address] [place] [id number]
[2019-10-27 20:59] VITALS: BP 94/52
--- NOTE | 2019-10-27 23:01 | NUR ---
B.) PT IS ALERT AND ORIENTED TO SELF ONLY. SHE IS LABILE AND IRRITATED WITH ADL'S. SHE IS RECEIVED IN THE DAY ROOM ON THE COUCH. SHE IS ABLE TO ASSIST WITH TRANSFERS BETTER. I.) PROVIDED PM MEDICATIONS. REDIRECT NEEDED. R.) REFUSED PM MEDICATIONS. DIFFICULT TO REDIRECT. P.) WILL CONTINUE TO MONITOR.
--- NOTE | 2019-10-28 08:07 | PN ---
PATIENT:KENYA DELGADO MEDICAL RECORD: [id number] LOCATION:[facility] ADMISSION DATE: 10/13/19 PROGRESS NOTE DATE OF SERVICE: 10/27/2019 SUBJECTIVE: The patient's case was discussed with staff. She has no new complaint. OBJECTIVE: The patient has been less irritable. She is generally tolerating her medicines well. She has a near therapeutic lithium level from a couple of days ago. She denies that she would seek to harm herself. ASSESSMENT: 1. Schizoaffective disorder. 2. Dementia. PLAN: Current medicines and therapies have been reviewed, both will be maintained. Long-term prognosis is guarded. TRANSINT:[id number] Voice Confirmation ID: [id number] DOCUMENT ID: [id number] MELONY PHAM MD at 0807 CC: [id number] DICTATION DATE: 10/27/19 1623 INSURANCE AUDITOR: 10/27/19 2259 ADM IN [address] [place] [address]
[2019-10-28 08:30] VITALS: BP 115/59
--- NOTE | 2019-10-28 14:11 | NUR ---
PATIENT CONFUSED, CALM, PILFERS, NO AGGRESSION REPORTED, MEDS ADMIN PER ORDERS WITH COMPLETE EMD COMPLIANCE NOTED. COOPERATIVE WITH PLAN OF CARE. CONT POC DIRECTED.
--- NOTE | 2019-10-29 02:09 | NUR ---
B) Patient is alert and oriented to person, tired and wanting to go to bed, I) Administered scheduled medications as ordered, monitored for safety R) Mediation compliant, sleeping quietly now, P) Continue plan of care.
--- NOTE | 2019-10-29 10:16 | NUR ---
PT IS AWAKE AND ALERT TO SELF ONLY. CALM AND COOPERATIVE WITH ASSESSMENT. PRESCRIBED MEDS PROVIDED ORDERED. PT REFUSED MEDS THIS SHIFT. ATTEMPTED X 3. REDIRECT AND REORIENT NEEDED. PT IS VERY AGGRESSIVE WITH STAFF DURING CARE AND REDIRECTION. FALL PRECAUTIONS IN PLACE. WILL CPOC.
[2019-10-29 11:09] VITALS: BP 95/56
--- NOTE | 2019-10-29 14:27 | PN ---
PATIENT:KENYA DELGADO MEDICAL RECORD: [id number] LOCATION:[facility] ADMISSION DATE: 10/13/19 PROGRESS NOTE DATE OF SERVICE: 10/28/2019 SUBJECTIVE: The patient's case was discussed with staff. She has no new complaint. OBJECTIVE: The patient is somewhat withdrawn, but generally interactive and cooperative. ASSESSMENT: 1. Schizoaffective disorder. 2. Dementia. PLAN: Current medicines have been reviewed. I am going to check another lithium level to ensure that it is not creeping upward. Otherwise, current medicines will be maintained. TRANSINT:[id number] Voice Confirmation ID: [id number] DOCUMENT ID: [id number] MELONY PHAM MD at 1427 CC: [id number] DICTATION DATE: 10/28/19924 SENSORY SCIENTIST: 10/28/19 1012 ADM IN [facility] [address] [place] [address]
[2019-10-29 20:00] VITALS: BP 135/56
--- NOTE | 2019-10-29 21:40 | NUR ---
RECEIVED IN DAYROOM. SITTING IN A WHEELCHAIR WITH PEERS AT HER SIDE. CALM AND COOPERATIVE WITH CARE AND ASSESSMENT. NO SIGNS OF AGGRESSION. REDIRECT AND REORIENT NEEDED. RESTING IN BED WITH EYES CLOSED AT THIS TIME. CONTINUE PLAN OF CARE
--- NOTE | 2019-10-29 22:18 | NUR ---
PT KEEPS PULLING OFF O2. O2 97%. OXYGEN VIA NC@2L D/C. WILL CONTINUE TO MONITOR.
--- NOTE | 2019-10-30 10:04 | NUR ---
PATIENT TOOK MEDS WITH WATER THEN SPIT THEM BACK OUT AT ME. NO SIGNS OF DISTRESS, NO NEEDS VOICED, CONTINUE WITH PLAN OF CARE
--- NOTE | 2019-10-30 10:53 | NUR ---
PT IS AWAKE AND ALERT TO PERSON ONLY. CALM AND COOPERATIVE WITH ASSESSMENT. PRESCRIBED MEDS PROVIDED ORDERED. PT REFUSED MEDS X 3. PT CAN BECOME VERY AGGRESSIVE WITH REDIRECTION. REDIRECT AND REORIENT NEEDED. FALL PRECAUTIONS IN PLACE. WILL CPOC.
--- NOTE | 2019-10-30 13:13 | PN ---
PATIENT:KENYA DELGADO MEDICAL RECORD: [id number] LOCATION:[facility] ADMISSION DATE: 10/13/19 PROGRESS NOTE DATE OF SERVICE: 10/29/2019 SUBJECTIVE: The patient's case was discussed with staff. She has no new complaint. OBJECTIVE: The patient is in good behavioral control. She has poor insight about her situation. ASSESSMENT: 1. Schizoaffective disorder. 2. Dementia. PLAN: The patient will be transitioned out of the hospital soon. Long-term prognosis is guarded. TRANSINT:[id number] Voice Confirmation ID: [id number] DOCUMENT ID: [id number] MELONY PHAM MD at 1313 CC: [id number] DICTATION DATE: 10/29/19 1444 MANAGING DIRECTOR: 10/29/19 1801 ADM IN [place] [address] [place] [address]
[2019-10-30 20:15] VITALS: BP 111/57
--- NOTE | 2019-10-30 21:48 | NUR ---
RECEIVED IN DAYROOM. SITTING IN A WHEELCHAIR WITH STAFF AND PEERS BY HER SIDE. CALM AND COOPERATIVE WITH CARE AND ASSESSMENT. NO SIGNS OF AGGRESSION. REDIRECT AND REORIENT NEEDED. RESTING IN BED WITH EYES CLOSED AT THIS TIME. CONTINUE PLAN OF CARE
[2019-10-31 08:00] VITALS: BP 94/50
--- NOTE | 2019-10-31 11:11 | PN ---
PATIENT:KENYA DELGADO MEDICAL RECORD: [id number] LOCATION:[facility] ADMISSION DATE: 10/13/19 PROGRESS NOTE DATE OF SERVICE: 10/30/2019 SUBJECTIVE: The patient's case was discussed with staff. She has no new complaint. OBJECTIVE: The patient has had some intermittent agitation, but appears to be calmer today. ASSESSMENT: 1. Schizoaffective disorder. 2. Dementia. PLAN: Current medicines have been reviewed. Brief supportive and educational interventions were made. The patient is on lithium and another lithium level is going to be drawn tomorrow. It has been therapeutic. TRANSINT:[id number] Voice Confirmation ID: [id number] DOCUMENT ID: [id number] MELONY PHAM MD at 1111 CC: [id number] DICTATION DATE: 10/30/191728 LEGISLATORS: 10/31/19 0242 ADM IN [facility] [address] [place] [address]
--- NOTE | 2019-10-31 16:25 | NUR ---
PT IN DAYROOM WITH PEERS. AWAKE AND ALERT TO SELF. CALM AND COOPERATIVE WITH ASSESSMENT. PRESCRIBED MEDS PROVIDED ORDERED. MED COMPLIANT. NO BEHAVIORS NOTED AT THIS TIME. REDIRECT AND REORIENT NEEDED. FALL PRECAUTIONS IN PLACE. WILL CPOC.
[2019-10-31 20:00] VITALS: BP 113/66
--- NOTE | 2019-10-31 23:43 | NUR ---
B) Patient is alert and oriented to self, keeps to herself, collects books at times, I) Administered scheduled medications as ordered, monitored for safety R) mediation compliant, sleeping quietly now P) Continue plan of care.
--- NOTE | 2019-11-01 08:37 | PN ---
PATIENT:KENYA DELGADO MEDICAL RECORD: [id number] LOCATION:[facility] ADMISSION DATE: 10/13/19 PROGRESS NOTE DATE OF SERVICE: 10/31/2019 SUBJECTIVE: The patient's case was discussed with staff. She has no new complaint. OBJECTIVE: The patient denies intent to harm herself or others. She generally tolerates her medicines well. Eye contact is fair. She is blunted and withdrawn, but not aggressive. ASSESSMENT: 1. Schizoaffective disorder. 2. Dementia. PLAN: The patient will be maintained on current medicines, which I have reviewed. I anticipate she can be transitioned out of the hospital soon if this level of improvement continues. TRANSINT:[id number] Voice Confirmation ID: [id number] DOCUMENT ID: [id number] MELONY PHAM MD at 0837 CC: [id number] DICTATION DATE: 10/31/19 1330 PICK UP DRIVER: 10/31/19 1408 ADM IN [place] [id number] [place] [address]
[2019-11-01] MEDS ORDERED: FEXOFENADINE HC60 MG PO (10:08)
[2019-11-01] MEDS ORDERED: ZYPREXA5 MG PO (10:08)
[2019-11-01] MEDS ORDERED: LITHIUM CARBON300 MG PO (10:08)
[2019-11-01] MEDS ORDERED: FLORAJEN3 CAPS460 MG PO (10:09)
[2019-11-01] MEDS ORDERED: NYSTATIN1 PWD TOPICAL (10:10)
[2019-11-01 11:30] VITALS: BP 114/74
--- NOTE | 2019-11-01 16:35 | NUR ---
ALERT AND ORIENTED TO SELF.COMPLIANT WITH STAFF AND MEDS.MEDS TAKEN CRUSHED AND IN PUDDING.PROPELLS SELF IN WHEELCHAIR.NO AGGRESSION OBSERVED.WILL CONTINUE WITH CURRENT PLAN OF CARE,MONITOR FOR CHANGES AND SAFETY.
[2019-11-01 20:28] VITALS: BP 113/54
--- NOTE | 2019-11-02 00:26 | NUR ---
B)SITTING IN A WHEELCHAIR IN THE DAYROOM. MOBILE IN WHEELCHAIR. CONFUSED AND DISORIENTED. POOR INTERACTION WITH STAFF AND OTHERS. LAUGHS INAPPROPRIATELY WHEN ASKED SOMETHING AND DOESN'T KNOW HOW TO RESPOND PT WILL LAUGH. I)ADMINISTER MEDS AND MONITOR COMPLIANCE. REORIENT NEEDED. R)MED COMPLIANT. POOR REORIENTATION DUE TO IMPAIRED ABILITY TO COMPREHEND, PROCESS AND RETAIN INFORMATION. P)CONTUNIE POC AND PROVIDE SAFE ENVIRONMENT.
[2019-11-02 09:56] VITALS: BP 94/52
--- NOTE | 2019-11-02 11:23 | NUR ---
Nutrition Follow-up: Diet: Diabetic PO intake: ~74% average x last 9 meals Last BM: 11/01/19. WT: 160# (10/29/19); Admit wt: 158# (10/13/19) Meds noted: bumex. Continue current nutrition regimen. RD following.
--- NOTE | 2019-11-02 14:13 | NUR ---
ELVIN LEFT VOICEMAIL ON [facility] NUMBER TO ALERT OF DISCHARGE TODAY. PT WILL RETURN BACK TO THE LONGTERM.
--- NOTE | 2019-11-02 14:27 | NUR ---
ALERT, CALM, COOPERATIVE, QUITE CONFUSED, NO AGGRESSION NOTED. MEDS ADMIN PER ORDERS WITH COMPLETE MED COMPLIANCE NOTED. CONT POC DIRECTED.
--- NOTE | 2019-11-02 15:22 | PN ---
PATIENT:KENYA DELGADO MEDICAL RECORD: [id number] LOCATION:[facility] ADMISSION DATE: 10/13/19 PROGRESS NOTE DATE OF SERVICE: 11/01/2019 SUBJECTIVE: The patient's case was discussed with staff. She has no new complaint. OBJECTIVE: The patient is in good behavioral control. She has limited insight about her situation. She has not been aggressive. ASSESSMENT: 1. Schizoaffective disorder. 2. Dementia. PLAN: The patient will be transitioned out of the hospital tomorrow. She is going to return to the [facility]. Followup will be with her primary care physician. TRANSINT:[id number] Voice Confirmation ID: [id number] DOCUMENT ID: [id number] MELONY PHAM MD at 1522 CC: [id number] DICTATION DATE: 11/01/19 1006 SENIOR PROJECT ARCHITECT: 11/01/19 1032 ADM IN [place] [id number] [place] [address]
--- NOTE | 2019-11-02 15:45 | NUR ---
PERSONAL BELONGINGS RETURNED TO PATIENT, REPORT CALLED TO THE [facility], DISCHARGE PAPERWORK SENT WITH PATIENT UPON DISCHARGE. PATIENT DISCHARGED FROM UNIT IN C/O THE [facility] STAFF, NO C/O PAIN, NO S/S DISTRESS.
--- NOTE | 2019-11-03 14:14 | PN ---
PATIENT:KENYA DELGADO MEDICAL RECORD: [id number] LOCATION:[facility] ADMISSION DATE: 10/13/19 PROGRESS NOTE DATE OF SERVICE: 11/02/2019 SUBJECTIVE: The patient's case was discussed with staff. She has no new complaint. OBJECTIVE: The patient is in good behavioral control and tolerating her medicines well. She has no thoughts of harming herself or others. ASSESSMENT: Schizoaffective disorder. PLAN: The patient will be transitioned out of the hospital today. She is going to return to the [facility]. Followup will be with her primary care physician. TRANSINT:[id number] Voice Confirmation ID: [id number] DOCUMENT ID: [id number] MELONY PHAM MD at 1414 CC: [id number] DICTATION DATE: 11/02/19 1545 CAR SUPERVISOR: 11/03/19 0008 DIS IN 11/02/19 [address] [place] [address]
== END 2019-11-02 15:45 | DRG 57 ==
LOC: D.PSYCH 12:24
PROVIDERS: Family Medicine; ADMIT Psychiatry & Neurology Psychiatry; ATTEND Psychiatry & Neurology Psychiatry
DX: G30.9 Alzheimer's disease, unspecified (principal); F02.81 Dementia in other diseases classified elsewhere, unspecified severity, with behavioral disturbance; N39.0 Urinary tract infection, site not specified; F25.0 Schizoaffective disorder, bipolar type; E11.9 Type 2 diabetes mellitus without complications; I10 Essential (primary) hypertension; E78.5 Hyperlipidemia, unspecified; I25.10 Atherosclerotic heart disease of native coronary artery without angina pectoris; M1A.9XX0 Chronic gout, unspecified, without tophus (tophi); E55.9 Vitamin D deficiency, unspecified; R26.9 Unspecified abnormalities of gait and mobility; G47.00 Insomnia, unspecified; J44.9 Chronic obstructive pulmonary disease, unspecified; M19.91 Primary osteoarthritis, unspecified site; D72.829 Elevated white blood cell count, unspecified

== ENCOUNTER 2019-12-01 11:20 | Emergency (ER) | payer MEDICARE ==
[~2019-12-01] VITALS: Ht 157.5 cm; Wt 73.6 kg
[~2019-12-01 11:20] MED LIST changes: +FEXOFENADINE HC60 MG PO; +FLORAJEN3 CAPS460 MG PO; +LITHIUM CARBON300 MG PO; +NYSTATIN1 PWD TOPICAL; +TRAZODONE HCL150 MG PO; +ZOLOFT50 MG PO; +ZYPREXA5 MG PO
[2019-12-01 11:30] VITALS: BP 97/63; Ht 157.5 cm; Wt 73.6 kg
[2019-12-01 11:50] LABS: BASOPHILS 0.3 % (0-2); EOSINOPHILS 1.7 % (0-7); HEMATOCRIT 38.4 % (36.0-48.0); HEMOGLOBIN 12.2 g/dL (12-16); IMMATURE GRANULOCYTES 0.2 % (0-5); LYMPHOCYTES 18.1 % (15-50); MCHC 31.8 g/dL (31.0-37.0); MCV 91.2 fL (80.0-100.0); MEAN PLATELET VOLUME 8.9 fL (7.4-10.4); MONOCYTES 4.7 % (2-11); PLATELET COUNT 267 10x3/uL (130-400); RBC 4.21 10x6/uL (4.00-5.40); RDW 14.8 % (11.5-14.5); WBC 14.8 10x3/uL (4.8-10.8)
[2019-12-01 11:57] LABS: ANION GAP 7.2 mmol/L (8-16); CALCIUM 9.3 mg/dL (8.5-10.1); CREATININE - SERUM 1.2 mg/dL (0.6-1.3); POTASSIUM - SERUM 4.2 mmol/L (3.5-5.1)
[2019-12-01 12:04] LABS: ALBUMIN 3.6 g/dL (3.4-5.0); BILIRUBIN - TOTAL 0.31 mg/dL (0.2-1.3); PROTEIN - SERUM 7.6 g/dL (6.4-8.2)
== END 2019-12-01 12:54 | disposition home or self-care (01) ==
LOC: D.ER 11:20
PROVIDERS: Family Medicine
DX: R78.89 Finding of other specified substances, not normally found in blood (principal); E11.9 Type 2 diabetes mellitus without complications; E78.5 Hyperlipidemia, unspecified; J44.9 Chronic obstructive pulmonary disease, unspecified; I10 Essential (primary) hypertension; I25.10 Atherosclerotic heart disease of native coronary artery without angina pectoris; G30.9 Alzheimer's disease, unspecified; F02.80 Dementia in other diseases classified elsewhere, unspecified severity, without behavioral disturbance, psychotic disturbance, mood disturbance, and anxiety